=== PATIENT | female | born 1955 | race Two or more races ===

== ENCOUNTER 2017-02-08 13:49 | Emergency (ER) | payer OTHER ==
[~2017-02-08] VITALS: Ht 162.6 cm; Wt 79.8 kg
--- NOTE | 2017-02-08 14:14 | NUR ---
PT TAKEN TO CT.
[2017-02-08] MEDS ORDERED: KETOROLAC TROMETHAMINE 15 MG/ML VIAL ONE (14:15)
--- NOTE | 2017-02-08 14:15 | NUR ---
PT CAME IN FOR ABDOMINAL PAIN X WEEKS; RLQ PAIN; + TENDERNESS. NAD NOTED. VSS. DENIES FEVER, N/V/D. SAFETY AND COMFORT MEASURES PROVIDED. WILL MONITOR.
[2017-02-08] MEDS ORDERED: IV NS 0.9% 1,000 ML ONE (14:16)
[2017-02-08] MEDS ORDERED: IV SET PRIMARY PUMP SET 1 EA INFUS.SET MC ONE (14:16)
[2017-02-08] MEDS ORDERED: IV NS 0.9% 1,000 ML BAG IV ONE (14:30)
[2017-02-08] MEDS ORDERED: KETOROLAC TROMETHAMINE INJ 30 MG/ML VIAL IV ONE (14:30)
[2017-02-08 14:35] LABS: BASOPHILS # (AUTO) 0.1 /CMM (0.0-0.2); BASOPHILS % (AUTO) 1.3 % (0.0-2.0); EOSINOPHILS # (AUTO) 0.1 /CMM (0.0-0.7); EOSINOPHILS % (AUTO) 1.9 % (0.0-6.0); HEMATOCRIT 46 % (33-45); HEMOGLOBIN 15.9 g/dL (11.5-14.8); LYMPHOCYTES # (AUTO) 2.8 /CMM (0.8-4.8); LYMPHOCYTES % (AUTO) 42.6 % (20.0-44.0); MEAN CORPUSCULAR HEMOGLOBIN 31 PG (26.0-33.0); MEAN CORPUSCULAR HGB CONC 35 g/dl (31.0-36.0); MEAN CORPUSCULAR VOLUME 90 fL (82-100); MONOCYTES # (AUTO) 0.5 /CMM (0.1-1.30); MONOCYTES % (AUTO) 7.5 % (2.0-12.0); NEUTROPHILS # (AUTO) 3.1 /CMM (1.8-8.9); NEUTROPHILS % (AUTO) 46.7 % (43.0-81.0); PLATELET COUNT (AUTO) 284 /CMM (150-450); RDW COEFFICIENT OF VARIATION 11.5 (11.5-15.0); WHITE BLOOD COUNT (AUTO) 6.6 K/uL (4.3-11.0)
--- NOTE | 2017-02-08 14:50 | NUR ---
IV ACCESS STARTED. BLOOD DRAWN FOR LABS. PT MEDICATED ORDERED.
[2017-02-08 15:04] LABS: CALCIUM, SERUM 8.7 mg/dL (8.5-10.1); CREATININE 0.7 mg/dL (0.6-1.3); POTASSIUM 4.1 mmol/L (3.5-5.1)
[2017-02-08 15:10] LABS: APPEARANCE,URINE Clear (CLEAR); BILIRUBIN,URINE Negative (NEGATIVE); BLOOD, URINE Negative Ery/uL (NEGATIVE); COLOR,URINE Yellow (YELLOW); KETONES,URINE Negative (NEGATIVE); LEUKOCYTE ESTERASE ,URINE Negative (NEGATIVE); NITRITE, URINE Negative (NEGATIVE); PROTEIN,URINE 30 mg/dl (NEGATIVE); UROBILINOGEN,URINE 0.2 EU/dL (0.2)
[2017-02-08 15:10] LABS: ALBUMIN 3.5 g/dL (3.4-5.0); BILIRUBIN,DIRECT 0.1 mg/dL (0.0-0.2); BILIRUBIN,TOTAL 0.3 mg/dL (0.2-1.0); TOTAL PROTEIN, SERUM 6.7 g/dL (6.4-8.2)
[2017-02-08 15:11] LABS: UGLUCOSE 250 MG/DL mg/dL (NEGATIVE)
[2017-02-08 15:21] LABS: ADD URINE CULTURE NO; BACTERIA,URINE 1+ /HPF (None Seen); HYALINE CASTS, URINE Few /LPF (None Seen); RBC,URINE NONE SEEN /HPF (0-2); SQUAMOUS EPITHELIAL CELL,UR Moderate /HPF (None Seen); WBC,URINE NONE SEEN /HPF (0-3)
--- NOTE | 2017-02-08 15:44 | NUR ---
IV removed. Catheter intact and site benign. Pressure and 4x4 applied to site. No bleeding noted.Patient discharged to home in stable condition. Written and verbal after care instructions given. Patient verbalizes understanding of instruction.
[2017-02-08 15:45] VITALS: BP 130/69
== END 2017-02-08 15:45 | disposition home or self-care (01) ==
LOC: ER 13:51
DX: R10.32 Left lower quadrant pain (principal); I10 Essential (primary) hypertension; J45.909 Unspecified asthma, uncomplicated; E11.9 Type 2 diabetes mellitus without complications; Z98.890 Other specified postprocedural states
CPT/HCPCS: 36415; 80048-TC; 80076-TC; 81000-TC; 83690-TC; 85025-TC; A4606; J1885; J7030; Z7610

== ENCOUNTER 2019-03-31 14:40 | Outpatient (CLI) | payer MEDICARE, MEDICAID | END 2019-03-31 23:59 | disposition home health service (06) | LOC: WOU 14:40 | PROVIDERS: ATTEND Podiatrist Foot & Ankle Surgery | DX: I70.245 Atherosclerosis of native arteries of left leg with ulceration of other part of foot (principal); L97.526 Non-pressure chronic ulcer of other part of left foot with bone involvement without evidence of necrosis; L97.528 Non-pressure chronic ulcer of other part of left foot with other specified severity; E11.52 Type 2 diabetes mellitus with diabetic peripheral angiopathy with gangrene; I96 Gangrene, not elsewhere classified; F17.200 Nicotine dependence, unspecified, uncomplicated | CPT/HCPCS: A6402; A6407; G0463 ==

== ENCOUNTER 2019-04-02 12:19 | Outpatient (CLI) | payer MEDICARE, MEDICAID | END 2019-04-02 23:59 | disposition home or self-care (01) | LOC: CARD 12:19 | PROVIDERS: ATTEND Podiatrist Foot & Ankle Surgery | DX: L97.529 Non-pressure chronic ulcer of other part of left foot with unspecified severity (principal); I73.9 Peripheral vascular disease, unspecified; M85.872 Other specified disorders of bone density and structure, left ankle and foot; M79.89 Other specified soft tissue disorders | CPT/HCPCS: 73630-TC; 93970-TC ==

== ENCOUNTER 2019-04-07 10:00 | Outpatient (CLI) | payer MEDICARE, MEDICAID | END 2019-04-07 23:59 | disposition home health service (06) | LOC: WOU 10:00 | PROVIDERS: ATTEND Podiatrist Foot & Ankle Surgery | DX: I70.245 Atherosclerosis of native arteries of left leg with ulceration of other part of foot (principal); L97.525 Non-pressure chronic ulcer of other part of left foot with muscle involvement without evidence of necrosis; L97.526 Non-pressure chronic ulcer of other part of left foot with bone involvement without evidence of necrosis; E11.52 Type 2 diabetes mellitus with diabetic peripheral angiopathy with gangrene; F17.200 Nicotine dependence, unspecified, uncomplicated; Z79.82 Long term (current) use of aspirin; Z79.4 Long term (current) use of insulin | CPT/HCPCS: 11043; A6402; G0277 ==

== ENCOUNTER 2019-04-14 10:00 | Outpatient (CLI) | payer MEDICARE, MEDICAID | END 2019-04-14 23:59 | disposition home health service (06) | LOC: WOU 10:00 | PROVIDERS: ATTEND Podiatrist Foot & Ankle Surgery | DX: I70.245 Atherosclerosis of native arteries of left leg with ulceration of other part of foot (principal); L97.525 Non-pressure chronic ulcer of other part of left foot with muscle involvement without evidence of necrosis; L97.526 Non-pressure chronic ulcer of other part of left foot with bone involvement without evidence of necrosis; E11.52 Type 2 diabetes mellitus with diabetic peripheral angiopathy with gangrene; M79.672 Pain in left foot; F17.200 Nicotine dependence, unspecified, uncomplicated; Z79.82 Long term (current) use of aspirin; Z79.4 Long term (current) use of insulin | CPT/HCPCS: 11043; A6402 ==

== ENCOUNTER 2019-05-01 11:30 | Outpatient (CLI) | payer MEDICARE, MEDICAID | END 2019-05-01 23:59 | disposition home health service (06) | LOC: WOU 11:30 | PROVIDERS: ATTEND Podiatrist Foot & Ankle Surgery | DX: E11.51 Type 2 diabetes mellitus with diabetic peripheral angiopathy without gangrene (principal); I70.245 Atherosclerosis of native arteries of left leg with ulceration of other part of foot; L97.526 Non-pressure chronic ulcer of other part of left foot with bone involvement without evidence of necrosis; L97.525 Non-pressure chronic ulcer of other part of left foot with muscle involvement without evidence of necrosis; F17.200 Nicotine dependence, unspecified, uncomplicated; Z79.84 Long term (current) use of oral hypoglycemic drugs | CPT/HCPCS: 11043 ==

== ENCOUNTER 2024-03-14 07:21 | Inpatient (IN) | payer MEDICARE, OTHER ==
[~2024-03-14] VITALS: Ht 162.6 cm; Wt 89.4 kg
[2024-03-14] VITALS (56 sets, daily range): BP systolic 66–148; BP diastolic 23–121; TEMP 98.2–98.7; O2SAT 91–100
[~2024-03-14 07:21] MED LIST: ENOXAPARIN SODIUM 100 MG/ML DISP.SYRIN SQ SCH
[2024-03-14 07:45] LABS: BASOPHILS # (AUTO) 0.1 K/uL (0.0-0.2); BASOPHILS % (AUTO) 0.4 % (0.0-2.0); EOSINOPHILS % (AUTO) 0.2 % (0.0-6.0); HEMATOCRIT 29 % (33-45); HEMOGLOBIN 9.1 g/dL (11.5-14.8); LYMPHOCYTES # (AUTO) 2.1 K/uL (0.8-4.8); LYMPHOCYTES % (AUTO) 15.4 % (20.0-44.0); MEAN CORPUSCULAR HEMOGLOBIN 28 PG (26.0-33.0); MEAN CORPUSCULAR HGB CONC 32 g/dl (31.0-36.0); MEAN CORPUSCULAR VOLUME 90 fL (82-100); MONOCYTES # (AUTO) 0.9 K/uL (0.1-1.30); MONOCYTES % (AUTO) 6.7 % (2.0-12.0); NEUTROPHILS # (AUTO) 10.4 K/uL (1.8-8.9); NEUTROPHILS % (AUTO) 77.3 % (43.0-81.0); PLATELET COUNT (AUTO) 460 K/uL (150-450); RED BLOOD CELL COUNT(AUTO) 3.21 MIL/uL (4.0-5.2); RED CELL DISTRIBUTION WIDTH 17.4 % (11.5-15.0); WHITE BLOOD COUNT (AUTO) 13.5 K/uL (4.3-11.0)
[2024-03-14 07:57] LABS: CALCIUM, SERUM 8.5 mg/dL (8.5-10.1); CARBON DIOXIDE 19 mmol/L (21-32); CHLORIDE 108 mmol/L (98-107); CREATININE 0.7 mg/dL (0.6-1.3); GLUCOSE 155 mg/dL (74-106); POTASSIUM 3.8 mmol/L (3.5-5.1); SODIUM SERUM 141 mmol/L (136-145); UREA NITROGEN, BLOOD 18 mg/dL (7-18)
[2024-03-14 07:58] LABS: INR 1.11 (0.91-1.10); PROTHROMBIN TIME 11.7 SECS (9.2-11.1)
[2024-03-14 08:01] LABS: ALANINE AMINOTRANSFERASE < 6 U/L (12-78); ALKALINE PHOSPHATASE 125 U/L (46-116); ASPARTATE AMINOTRANSFERASE 16 U/L (15-37); BILIRUBIN,TOTAL 0.2 mg/dL (0.2-1.0); TOTAL PROTEIN, SERUM 5.7 g/dL (6.4-8.2)
[2024-03-14] MEDS: IV NS 0.9% 1,000 ML BAG IV ONE (08:13)
[2024-03-14] MEDS: VANCOMYCIN HCL 1 GM in IV D5W 260 ML IV ONE (08:19)
[2024-03-14] MEDS: NOREPINEPHRINE 8 MG in IV D5W 242 ML IV PRN ×2 (08:47→15:09)
[2024-03-14] MEDS ORDERED: ENOXAPARIN SODIUM 100 MG/ML DISP.SYRIN SQ ONE (09:00)
[2024-03-14] MEDS ORDERED: ERGO500093 PO (09:46)
[2024-03-14] MEDS ORDERED: CLOP75TA15 PO (09:46)
[2024-03-14] MEDS ORDERED: FURO-144 PO (09:46)
[2024-03-14] MEDS ORDERED: ATOR20TA PO (09:46)
[2024-03-14] MEDS ORDERED: AMOX500T2 PO (09:46)
[2024-03-14] MEDS ORDERED: CITA10TA9 PO (09:46)
[2024-03-14] MEDS ORDERED: LOSA50TA39 PO (09:46)
[2024-03-14] MEDS ORDERED: ALBU18HF2 IH (09:46)
[2024-03-14] MEDS ORDERED: SODI650T PO (09:46)
[2024-03-14] MEDS ORDERED: GLIM2TAB31 PO (09:46)
[2024-03-14] MEDS ORDERED: SENN-170 PO (09:46)
[2024-03-14] MEDS ORDERED: FENO145T21 PO (09:46)
[2024-03-14] MEDS ORDERED: OMEG1CAP55 PO (09:46)
[2024-03-14] MEDS ORDERED: IPRA3AMP22 IH (09:46)
[2024-03-14] MEDS ORDERED: SITA1TAB6 PO (09:46)
[2024-03-14] MEDS ORDERED: PANT40TA2 PO (09:46)
[2024-03-14] MEDS ORDERED: HYDR-4209 PO (09:46)
[2024-03-14] MEDS ORDERED: PROPOFOL 100 ML IV PRN (10:30)
[2024-03-14] MEDS: ONDANSETRON HCL/PF 4 MG/2 ML VIAL ONE (12:51)
[2024-03-14] MEDS ORDERED: ONDANSETRON HCL/PF 4 MG/2 ML VIAL IVP PRN (13:00)
[2024-03-14] MEDS ORDERED: ONDANSETRON HCL/PF 4 MG/2 ML VIAL IV PRN (13:00)
[2024-03-14] MEDS ORDERED: ACETAMINOPHEN 325 MG TABLET PO PRN (13:00)
[2024-03-14] MEDS ORDERED: ALBUMIN 25% 12.5 GM/50 ML BOTTLE IV ONE (13:00)
[2024-03-14] MEDS ORDERED: MAGNESIUM HYDROXIDE 30 ML UDC PO PRN (13:00)
[2024-03-14] MEDS ORDERED: Z GUARD REMEDY 4 OZ OINT TP PRN (13:00)
[2024-03-14] MEDS ORDERED: CEFEPIME 2 GM in IV D5W 100 ML IV SCH (13:00)
[2024-03-14] MEDS ORDERED: ALBUTEROL FS 2.5 MG/3 ML VIAL.NEB IH PRN (13:30)
[2024-03-14 14:05] LABS: THYROID STIMULATING HORMONE 3.631 uIU/mL (0.358-3.74)
[2024-03-14] MEDS: IV NS 0.9% 1,000 ML IV PRN (14:17)
[2024-03-14] MEDS: ALBUMIN 25% 50 GM in PREMIX 1 EA IV ONE (14:41)
[2024-03-14] MEDS: CEFEPIME 2 GM in IV D5W 100 ML IV SCH (14:41)
[2024-03-14] MEDS: ENOXAPARIN SODIUM 40 MG/0.4 ML DISP.SYRIN SQ SCH (14:42)
[2024-03-14 15:41] LABS: THYROID STIMULATING HORMONE 3.241 uIU/mL (0.358-3.74)
[2024-03-14 15:45] LABS: C-REACTIVE PROTEIN 6.77 mg/dL (0.0-0.30)
[2024-03-14] MEDS: FUROSEMIDE 20 MG/2 ML VIAL IV ONE (16:00)
[2024-03-14] MEDS: DOCUSATE SODIUM 100 MG CAPSULE PO SCH (16:01)
[2024-03-14] MEDS: ENOXAPARIN SODIUM 60 MG/0.6 ML DISP.SYRIN SQ ONE (16:58)
[2024-03-14] MEDS: CITALOPRAM HYDROBROMIDE 10 MG TABLET PO SCH (17:00)
[2024-03-14] MEDS: SODIUM BICARBONATE 650 MG TABLET PO SCH (17:00)
[2024-03-14] MEDS ORDERED: PANTOPRAZOLE 40 MG TABLET.DR PO SCH (17:00)
[2024-03-14 17:14] LABS: APPEARANCE,SPUN,BODY FLUID CLEAR (CLEAR); TOTAL VOLUME,BODY FLUID 2050 mL
[2024-03-14 17:20] LABS: PROTEIN, BODY FLUID 2.1 G/DL
[2024-03-14 17:26] LABS: RHEUMATOID FACTOR SCREEN NEGATIVE (NEGATIVE)
[2024-03-14 19:48] LABS: CREATININE, URINE 60.8 MG/DL (30.0-125.0)
[2024-03-14] MEDS: VANCOMYCIN 1 GM in IV D5W 250 ML IV SCH (19:58)
[2024-03-14 20:41] LABS: APPEARANCE,URINE SLIGHTLY CLOUDY (CLEAR); BILIRUBIN,URINE NEGATIVE (NEGATIVE); BLOOD, URINE 2+ Ery/uL (NEGATIVE); COLOR,URINE YELLOW (YELLOW); KETONES,URINE TRACE mg/dL (NEGATIVE); LEUKOCYTE ESTERASE ,URINE 1+ (NEGATIVE); NITRITE, URINE NEGATIVE (NEGATIVE); PH,URINE 5.5 (5.0-8.0); PROTEIN,URINE 1+ mg/dl (NEGATIVE); UGLUCOSE NEGATIVE (NEGATIVE); UROBILINOGEN,URINE 0.2 EU/dL (0.2)
[2024-03-14 20:57] LABS: RBC,URINE 21-50 /HPF (0-2)
[2024-03-14 20:58] LABS: ADD URINE CULTURE YES; BACTERIA,URINE 1+ /HPF (None Seen); YEAST,URINE Moderate /HPF (None Seen)
[2024-03-14 21:31] LABS: MONOCYTES,BODY FLUID 3 %; POLYNUCLEAR, BODY FLUID 51 % (0-25)
[2024-03-14 21:58] LABS: URINE TOTAL PROTEIN 286.9 mg/dL (0-11.9)
[2024-03-14] MEDS: ATORVASTATIN 10 MG TABLET PO SCH (22:00)
[2024-03-14] MEDS ORDERED: FLUCONAZOLE (100 MG) 100 MG TABLET PO SCH (22:00)
[2024-03-14] MEDS ORDERED: FLUCONAZOLE IN NS 100 ML IV ONE (23:36)
[2024-03-14] MEDS: FLUCONAZOLE IN NS 100 MG in PREMIX 1 EA IV ONE (23:47)
[2024-03-15] VITALS (97 sets, daily range): BP systolic 80–127; BP diastolic 31–98; TEMP 98–99.2; O2SAT 93–100
[2024-03-15] MEDS: ENOXAPARIN SODIUM 100 MG/ML DISP.SYRIN SQ SCH (04:40)
[2024-03-15 07:09] LABS: FOLIC ACID 2.7 ng/mL (>3.0)
[2024-03-15] MEDS: PANTOPRAZOLE 40 MG TABLET.DR PO SCH (07:58)
[2024-03-15 08:11] LABS: IMMUNOGLOBULIN A, SERUM 291 mg/dL (87-352); IMMUNOGLOBULIN G, SERUM 1177 mg/dL (586-1602); IMMUNOGLOBULIN M, SERUM 247 mg/dL (26-217)
[2024-03-15] MEDS: ASPIRIN EC 81 MG TABLET.DR PO SCH (08:31)
[2024-03-15] MEDS: FUROSEMIDE 40 MG TABLET PO SCH (08:31)
[2024-03-15] MEDS: LOSARTAN POTASSIUM 50 MG TABLET PO SCH (08:32)
[2024-03-15 08:39] LABS: BASOPHILS % (AUTO) 0.2 % (0.0-2.0); HEMATOCRIT 23 % (33-45); HEMOGLOBIN 7.4 g/dL (11.5-14.8); LYMPHOCYTES # (AUTO) 1.4 K/uL (0.8-4.8); LYMPHOCYTES % (AUTO) 9.1 % (20.0-44.0); MEAN CORPUSCULAR HEMOGLOBIN 28 PG (26.0-33.0); MEAN CORPUSCULAR HGB CONC 32 g/dl (31.0-36.0); MEAN CORPUSCULAR VOLUME 87 fL (82-100); MONOCYTES % (AUTO) 6.8 % (2.0-12.0); NEUTROPHILS # (AUTO) 12.7 K/uL (1.8-8.9); NEUTROPHILS % (AUTO) 83.9 % (43.0-81.0); PLATELET COUNT (AUTO) 350 K/uL (150-450); RED BLOOD CELL COUNT(AUTO) 2.65 MIL/uL (4.0-5.2); RED CELL DISTRIBUTION WIDTH 17.1 % (11.5-15.0); WHITE BLOOD COUNT (AUTO) 15.1 K/uL (4.3-11.0)
[2024-03-15 09:00] LABS: ALBUMIN 1.7 g/dL (3.4-5.0); BILIRUBIN,TOTAL 0.3 mg/dL (0.2-1.0); CALCIUM, SERUM 8.2 mg/dL (8.5-10.1); CREATININE 0.9 mg/dL (0.6-1.3); MAGNESIUM 1.7 mg/dL (1.8-2.4); PHOSPHORUS 2.5 mg/dL (2.5-4.9)
[2024-03-15] MEDS ORDERED: CLOPIDOGREL BISULFATE 75 MG TABLET PO SCH (09:00)
[2024-03-15 09:02] LABS: D-DIMER 1.62 mg/L(FEU (0.17-0.50); INR 1.46 (0.91-1.10); PARTIAL THROMBOPLASTIN TIME 40.1 SEC (24.3-34.3); PROTHROMBIN TIME 15.1 SECS (9.2-11.1)
[2024-03-15 09:02] LABS: POTASSIUM 2.8 mmol/L (3.5-5.1)
[2024-03-15 09:16] LABS: BAND % (MANUAL) 1 % (0.0-5.0); LYMPHOCYTES % (MANUAL) 9 % (16-48); MONOCYTES % (MANUAL) 3 % (0-11.0); NEUTROPHILS % (MANUAL) 84 (42-76)
[2024-03-15 09:17] LABS: ANISOCYTOSIS 1+; METAMYELOCYTES % 1 % (0-0); MYELOCYTES % 1 % (0-0); OVALOCYTES 1+; PLATELET ESTIMATE ADEQUATE; PROMYELOCYTES % 1 % (0-0); SMUDGE CELLS FEW
[2024-03-15] MEDS: HYDROCODONE/APAP 10/325MG TABLET PO PRN (10:21)
[2024-03-15] MEDS: FENOFIBRATE NANOCRYS (145 MG) 145 MG TABLET PO SCH (11:08)
[2024-03-15 11:11] LABS: *ANA ANTI-CENTROMERE B AB <0.2 AI (0.0-0.9); *ANA ANTI-DNA(DS) AB, QN 8 IU/mL (0-9); *ANA ANTI-JO-1 <0.2 AI (0.0-0.9); *ANA ANTICHROMATIN ANTIBODY <0.2 AI (0.0-0.9); *ANA RNP ANTIBODIES <0.2 AI (0.0-0.9); *ANA SJOGREN'S ANTI-SS-A <0.2 AI (0.0-0.9); *ANA SJOGREN'S ANTI-SS-B <0.2 AI (0.0-0.9); *ANAANTI-SCLERODERMA-70 AB <0.2 AI (0.0-0.9); *ANASMITH AB <0.2 AI (0.0-0.9)
[2024-03-15] MEDS: POTASSIUM CL. PREMIX PERIPHER. 50 ML IV SCH (11:12)
[2024-03-15] MEDS ORDERED: DEXTROSE 50%-WATER 50 ML DISP.SYRIN IV PRN ×2 (12:00)
[2024-03-15] MEDS: BLOOD SUGAR DIAGNOSTIC 1 EACH STRIP IN SCH (12:00)
[2024-03-15] MEDS ORDERED: BLOOD SUGAR DIAGNOSTIC 1 EACH STRIP IN SCH (12:00)
[2024-03-15 13:10] LABS: FREE KAPPA LT CHAINS SERUM 79.2 mg/L (3.3-19.4); FREE LAMBDA LT CHAIN SERUM 55.2 mg/L (5.7-26.3); KAPPA/LAMBDA RATIO SERUM 1.43 (0.26-1.65)
[2024-03-15] MEDS: FOLIC ACID 1 MG TABLET PO SCH (18:53)
[2024-03-15] MEDS: FLUCONAZOLE IN NS 100 MG in PREMIX 1 EA IV SCH (20:29)
[2024-03-15] MEDS: INSULIN REGULAR, HUMAN 100 UNIT/ML 3 ML VIAL SQ PRN (23:32)
[2024-03-16] VITALS (77 sets, daily range): BP systolic 99–137; BP diastolic 51–104; TEMP 97.4–99.1; O2SAT 92–100
[2024-03-16 05:05] LABS: D-DIMER 1.49 mg/L(FEU (0.17-0.50); INR 1.49 (0.91-1.10); PARTIAL THROMBOPLASTIN TIME 42.6 SEC (24.3-34.3); PROTHROMBIN TIME 15.4 SECS (9.2-11.1)
[2024-03-16 05:06] LABS: BASOPHILS % (AUTO) 0.2 % (0.0-2.0); HEMATOCRIT 21 % (33-45); LYMPHOCYTES # (AUTO) 0.9 K/uL (0.8-4.8); LYMPHOCYTES % (AUTO) 9.2 % (20.0-44.0); MEAN CORPUSCULAR HEMOGLOBIN 29 PG (26.0-33.0); MEAN CORPUSCULAR HGB CONC 32 g/dl (31.0-36.0); MEAN CORPUSCULAR VOLUME 88 fL (82-100); MONOCYTES # (AUTO) 0.7 K/uL (0.1-1.30); MONOCYTES % (AUTO) 7.4 % (2.0-12.0); NEUTROPHILS # (AUTO) 7.8 K/uL (1.8-8.9); NEUTROPHILS % (AUTO) 83.2 % (43.0-81.0); PLATELET COUNT (AUTO) 223 K/uL (150-450); RED BLOOD CELL COUNT(AUTO) 2.38 MIL/uL (4.0-5.2); RED CELL DISTRIBUTION WIDTH 17.3 % (11.5-15.0); WHITE BLOOD COUNT (AUTO) 9.4 K/uL (4.3-11.0)
[2024-03-16 05:11] LABS: HEMOGLOBIN 6.8 g/dL (11.5-14.8)
[2024-03-16 05:21] LABS: CALCIUM, SERUM 7.9 mg/dL (8.5-10.1); POTASSIUM 3.2 mmol/L (3.5-5.1)
[2024-03-16 06:18] LABS: ANISOCYTOSIS 1+; BAND % (MANUAL) 2 % (0.0-5.0); BASOPHILS % (MANUAL) 0 % (0.0-2.0); EOSINOPHILS % (MANUAL) 0 % (0-4); HYPOCHROMASIA 1+; LYMPHOCYTES % (MANUAL) 11 % (16-48); MONOCYTES % (MANUAL) 6 % (0-11.0); NEUTROPHILS % (MANUAL) 81 (42-76); OVALOCYTES 1+; PLATELET ESTIMATE ADEQUATE
[2024-03-16] MEDS: POTASSIUM CHLORIDE 20 MEQ TAB.PRT.SR PO SCH (09:22)
[2024-03-16 17:02] LABS: HEMOGLOBIN 9.3 g/dL (11.5-14.8)
[2024-03-17] VITALS (23 sets, daily range): BP systolic 94–137; BP diastolic 40–91; TEMP 97.4–98; O2SAT 96–100
[2024-03-17] MEDS: ONDANSETRON HCL/PF 4 MG/2 ML VIAL IV PRN (00:26)
[2024-03-17 04:58] LABS: BASOPHILS % (AUTO) 0.1 % (0.0-2.0); EOSINOPHILS % (AUTO) 0.1 % (0.0-6.0); HEMATOCRIT 28 % (33-45); HEMOGLOBIN 9.2 g/dL (11.5-14.8); LYMPHOCYTES # (AUTO) 0.5 K/uL (0.8-4.8); MEAN CORPUSCULAR HEMOGLOBIN 29 PG (26.0-33.0); MEAN CORPUSCULAR HGB CONC 33 g/dl (31.0-36.0); MEAN CORPUSCULAR VOLUME 86 fL (82-100); MONOCYTES # (AUTO) 0.6 K/uL (0.1-1.30); MONOCYTES % (AUTO) 7.3 % (2.0-12.0); NEUTROPHILS # (AUTO) 6.5 K/uL (1.8-8.9); NEUTROPHILS % (AUTO) 85.5 % (43.0-81.0); PLATELET COUNT (AUTO) 205 K/uL (150-450); RED CELL DISTRIBUTION WIDTH 17.1 % (11.5-15.0); WHITE BLOOD COUNT (AUTO) 7.6 K/uL (4.3-11.0)
[2024-03-17 05:09] LABS: D-DIMER 1.19 mg/L(FEU (0.17-0.50); INR 1.48 (0.91-1.10); PARTIAL THROMBOPLASTIN TIME 25.4 SEC (24.3-34.3); PROTHROMBIN TIME 15.3 SECS (9.2-11.1)
[2024-03-17 05:17] LABS: ALANINE AMINOTRANSFERASE < 6 U/L (12-78); ALKALINE PHOSPHATASE 90 U/L (46-116); ASPARTATE AMINOTRANSFERASE 12 U/L (15-37); BILIRUBIN,TOTAL 0.3 mg/dL (0.2-1.0); CALCIUM, SERUM 8.1 mg/dL (8.5-10.1); CARBON DIOXIDE 24 mmol/L (21-32); CHLORIDE 110 mmol/L (98-107); CREATININE 0.9 mg/dL (0.6-1.3); GLUCOSE 152 mg/dL (74-106); MAGNESIUM 1.7 mg/dL (1.8-2.4); PHOSPHORUS 2.2 mg/dL (2.5-4.9); SODIUM SERUM 143 mmol/L (136-145); TOTAL PROTEIN, SERUM 4.6 g/dL (6.4-8.2); UREA NITROGEN, BLOOD 22 mg/dL (7-18)
[2024-03-17 05:19] LABS: ALBUMIN 1.3 g/dL (3.4-5.0); POTASSIUM 2.8 mmol/L (3.5-5.1)
[2024-03-17] MEDS: ALBUMIN 25% 100 ML IV ONE (06:17)
[2024-03-17] MEDS: ALBUMIN 25% 25 GM in PREMIX 1 EA IV SCH (06:19)
[2024-03-17] MEDS: POTASSIUM CL. PREMIX PERIPHER. 50 ML IV SCH (06:19)
[2024-03-17] MEDS: ERGOCALCIFEROL (VITAMIN D 2) 50,000 UNIT CAPSULE PO SCH (08:13)
[2024-03-17] MEDS ORDERED: VANCOMYCIN 750 MG in IV D5W 250 ML IV SCH (09:00)
[2024-03-17] MEDS: Magnesium 1GM/D5W 100ML PREMIX 100 ML IV SCH (09:47)
[2024-03-17] MEDS: ENOXAPARIN SODIUM 80 MG/0.8 ML DISP.SYRIN SQ SCH (09:48)
[2024-03-17 15:40] LABS: CALCIUM, SERUM 8.3 mg/dL (8.5-10.1); CREATININE 0.9 mg/dL (0.6-1.3); POTASSIUM 3.3 mmol/L (3.5-5.1)
[2024-03-17] MEDS ORDERED: Sodium Phosphate 15 MMOL in IV NS 0.9% 245 ML IV ONE (16:00)
[2024-03-18 01:08] LABS: CANCER AG, 15-3 24.8 U/mL (0.0-25.0)
[2024-03-18 07:08] LABS: *SPE A/G RATIO 0.6 (0.7-1.7); *SPE ALBUMIN 1.7 g/dL (2.9-4.4); *SPE ALPHA-1-GLOBULIN 0.3 g/dL (0.0-0.4); *SPE ALPHA-2-GLOBULIN 0.7 g/dL (0.4-1.0); *SPE BETA GLOBULIN 0.5 g/dL (0.7-1.3); *SPE GLOBULIN, TOTAL 2.9 g/dL (2.2-3.9); *SPE M-SPIKE 0.2 g/dL (Not Observed); *SPE PROTEIN TOTAL 4.6 g/dL (6.0-8.5); *SPEGAMMA GLOBULIN 1.4 g/dL (0.4-1.8)
[2024-03-18] MEDS ORDERED: VANCOMYCIN 1 GM in IV D5W 250ml IV SCH (09:00)
[2024-03-18 16:11] LABS: BETA-2 MICROGLOBULIN, SERUM 4.9 mg/L (0.6-2.4)
== END 2024-03-17 17:40 | disposition short-term general hospital (02) | DRG 193 ==
LOC: ER 07:34 → ICU 10:11 → TELE1 03-17 10:31
PROVIDERS: ADMIT Nurse Practitioner Acute Care; ATTEND Nurse Practitioner Acute Care
PROC: 5A09357 Assistance with Respiratory Ventilation, Less than 24 Consecutive Hours, Continuous Positive Airway Pressure (ICD-10-PCS; principal; 2024-03-14)
PROC: 0W993ZZ Drainage of Right Pleural Cavity, Percutaneous Approach (ICD-10-PCS; 2024-03-14)
PROC: 30233N1 Transfusion of Nonautologous Red Blood Cells into Peripheral Vein, Percutaneous Approach (ICD-10-PCS; 2024-03-16)
DX: J15.9 Unspecified bacterial pneumonia (principal); I21.A1 Myocardial infarction type 2; J96.01 Acute respiratory failure with hypoxia; I50.33 Acute on chronic diastolic (congestive) heart failure; D68.59 Other primary thrombophilia; E87.20 Acidosis, unspecified; L03.115 Cellulitis of right lower limb; L03.116 Cellulitis of left lower limb; I82.411 Acute embolism and thrombosis of right femoral vein; D68.9 Coagulation defect, unspecified; B37.49 Other urogenital candidiasis; I87.313 Chronic venous hypertension (idiopathic) with ulcer of bilateral lower extremity; L97.829 Non-pressure chronic ulcer of other part of left lower leg with unspecified severity; L97.819 Non-pressure chronic ulcer of other part of right lower leg with unspecified severity; J44.0 Chronic obstructive pulmonary disease with (acute) lower respiratory infection; J91.8 Pleural effusion in other conditions classified elsewhere; I11.0 Hypertensive heart disease with heart failure; D64.9 Anemia, unspecified; D75.839 Thrombocytosis, unspecified; E83.42 Hypomagnesemia; E78.5 Hyperlipidemia, unspecified; E87.6 Hypokalemia; E88.09 Other disorders of plasma-protein metabolism, not elsewhere classified; Z86.718 Personal history of other venous thrombosis and embolism; E11.9 Type 2 diabetes mellitus without complications; E11.51 Type 2 diabetes mellitus with diabetic peripheral angiopathy without gangrene; E66.01 Morbid (severe) obesity due to excess calories; Z68.33 Body mass index [BMI] 33.0-33.9, adult; Z85.42 Personal history of malignant neoplasm of other parts of uterus; Z89.422 Acquired absence of other left toe(s); E67.8 Other specified hyperalimentation; E11.621 Type 2 diabetes mellitus with foot ulcer; I87.2 Venous insufficiency (chronic) (peripheral); N81.4 Uterovaginal prolapse, unspecified; Z95.820 Peripheral vascular angioplasty status with implants and grafts; K76.0 Fatty (change of) liver, not elsewhere classified; R74.8 Abnormal levels of other serum enzymes
CPT/HCPCS: 36415; 36600; 71045-TC; 76700-TC; 80048-TC; 80053-TC; 80061-TC; 80076-TC; 80202-TC; 81001; 82232; 82378; 82570-TC; 82607-TC; 82728-TC; 82784; 82803-TC; 82962-TC; 83540-TC; 83605-TC; 83615-TC; 83735-TC; 83880; 84100-TC; 84155; 84165; 84300-TC; 84443-TC; 84484-TC; 85025-TC; 85027-TC; 85045-TC; 85378-TC; 85385-TC; 85396; 85730-TC; 86140-TC; 86225; 86235; 86300; 86304; 86334; 86431-TC; 86850-TC; 87040-TC; 87081-TC; 87086-TC; 87102-TC; 88108-TC; 88305-TC; 88312-TC; 89051-TC; 93307-TC; 93970-TC; 93971-TC; 94660; 94761-TC; 94799-TC; 99082-TC; A4216; A4217; A4223; A6253; A6403; A9563; G0378; J0692; J1450; J1650; J1815; J1940; J2405; J3370; J3371; J3475; J3480; J3490; J7030; J7050; J7060; P9016; P9047